=== PATIENT | female | born 1945 | race Caucasian/White ===

== ENCOUNTER 2017-06-24 20:17 | Inpatient (IN) | payer MEDICARE, OTHER ==
[~2017-06-24] VITALS: Ht 160 cm; Wt 61.8 kg
[2017-06-24] MEDS ORDERED: ZESTRIL40 MG PO (22:18)
[2017-06-24] MEDS ORDERED: PEPCID40 MG PO (22:24)
[2017-06-24] MEDS ORDERED: XANAX0.5 MG PO (22:24)
[2017-06-24] MEDS ORDERED: ZANAFLEX4 MG PO (22:25)
[2017-06-24] MEDS ORDERED: OMEPRAZOLE40 MG PO (22:26)
[2017-06-24] MEDS ORDERED: AMBIEN10 MG PO (22:27)
[2017-06-24] MEDS ORDERED: K-DUR20 MEQ PO (22:27)
[2017-06-24] MEDS ORDERED: ALDACTONE25 MG PO (22:29)
[2017-06-24] MEDS ORDERED: PRINIVIL10 MG PO (22:30)
[2017-06-24] MEDS ORDERED: BUTALB-APAP-CA1 EACH PO (22:31)
[2017-06-24] MEDS ORDERED: LEXAPRO20 MG PO (22:32)
[2017-06-24] MEDS ORDERED: CARAFATE1 G PO (22:33)
[2017-06-24 22:59] VITALS: BP 168/84; BMI 24.8
[2017-06-25] VITALS: BP 168/84
[2017-06-25 06:20] VITALS: BP 146/77
[2017-06-25 08:12] VITALS: BP 144/63
[2017-06-25 10:04] LABS: BASOPHILS 0.5 % (0-2); EOSINOPHILS 1.5 % (0-7); HEMATOCRIT 27.9 % (36.0-48.0); HEMOGLOBIN 9.3 g/dL (12-16); IMMATURE GRANULOCYTES 0.2 % (0-5); LYMPHOCYTES 20.5 % (15-50); MCH 33.9 pg (26.0-34.0); MCHC 33.3 g/dL (31.0-37.0); MCV 101.8 fL (80.0-100.0); MEAN PLATELET VOLUME 8.6 fL (7.4-10.4); MONOCYTES 7.3 % (2-11); PLATELET COUNT 388 10x3/uL (130-400); RBC 2.74 10x6/uL (4.00-5.40); RDW 13.4 % (11.5-14.5); WBC 8.5 10x3/uL (4.8-10.8)
[2017-06-25 10:29] LABS: ALBUMIN 1.1 g/dL (3.4-5.0); ANION GAP 15.9 mmol/L (8-16); BILIRUBIN - TOTAL 0.11 mg/dL (0.2-1.3); CALCIUM 8.1 mg/dL (8.5-10.1); CARBON DIOXIDE 16.4 mmol/L (21.0-32.0); CREATININE - SERUM 1.8 mg/dL (0.6-1.3); POTASSIUM - SERUM 4.3 mmol/L (3.5-5.1); PROTEIN - SERUM 4.7 g/dL (6.4-8.2)
[2017-06-25 11:30] VITALS: BP 140/60
[2017-06-25 15:40] VITALS: BP 136/68
[2017-06-25 21:52] VITALS: BP 163/82
[2017-06-26 00:52] VITALS: BP 158/74
[2017-06-26 07:25] VITALS: BP 166/75
[2017-06-26 07:43] LABS: BASOPHILS 0.7 % (0-2); EOSINOPHILS 2.2 % (0-7); HEMATOCRIT 28.8 % (36.0-48.0); HEMOGLOBIN 9.4 g/dL (12-16); IMMATURE GRANULOCYTES 0.2 % (0-5); MCH 33.3 pg (26.0-34.0); MCHC 32.6 g/dL (31.0-37.0); MCV 102.1 fL (80.0-100.0); MEAN PLATELET VOLUME 8.9 fL (7.4-10.4); MONOCYTES 6.9 % (2-11); RBC 2.82 10x6/uL (4.00-5.40); RDW 13.5 % (11.5-14.5); WBC 8.3 10x3/uL (4.8-10.8)
[2017-06-26 07:45] LABS: PLATELET COUNT 484 10x3/uL (130-400)
[2017-06-26 07:52] LABS: INR 1.05 (0.85-1.17); PROTIME 13.3 SECONDS (11.6-15.0)
[2017-06-26 08:01] LABS: ALBUMIN 1.2 g/dL (3.4-5.0); ANION GAP 15.2 mmol/L (8-16); CALCIUM 8.2 mg/dL (8.5-10.1); CARBON DIOXIDE 16.6 mmol/L (21.0-32.0); CREATININE - SERUM 1.7 mg/dL (0.6-1.3); POTASSIUM - SERUM 3.8 mmol/L (3.5-5.1); PROTEIN - SERUM 5.1 g/dL (6.4-8.2)
[2017-06-26 08:05] LABS: BILIRUBIN - TOTAL 0.09 mg/dL (0.2-1.3)
[2017-06-26 12:03] VITALS: BP 178/91
[2017-06-26 19:00] VITALS: BP 164/85
[2017-06-27] VITALS: BP 164/74
[2017-06-27 04:00] VITALS: BP 182/86
[2017-06-27 05:31] LABS: BASOPHILS 0.3 % (0-2); EOSINOPHILS 2.7 % (0-7); HEMATOCRIT 24.5 % (36.0-48.0); HEMOGLOBIN 7.9 g/dL (12-16); IMMATURE GRANULOCYTES 0.3 % (0-5); LYMPHOCYTES 23.7 % (15-50); MCH 32.8 pg (26.0-34.0); MCHC 32.2 g/dL (31.0-37.0); MCV 101.7 fL (80.0-100.0); MEAN PLATELET VOLUME 8.9 fL (7.4-10.4); MONOCYTES 7.2 % (2-11); NEUTROPHILS 65.8 % (40-80); PLATELET COUNT 416 10x3/uL (130-400); RBC 2.41 10x6/uL (4.00-5.40); RDW 13.6 % (11.5-14.5); WBC 7.4 10x3/uL (4.8-10.8)
[2017-06-27 05:53] LABS: ALBUMIN 1.1 g/dL (3.4-5.0); ANION GAP 15.7 mmol/L (8-16); CALCIUM 7.7 mg/dL (8.5-10.1); CARBON DIOXIDE 17.5 mmol/L (21.0-32.0); CREATININE - SERUM 1.8 mg/dL (0.6-1.3); POTASSIUM - SERUM 4.2 mmol/L (3.5-5.1); PROTEIN - SERUM 4.5 g/dL (6.4-8.2)
[2017-06-27 06:08] LABS: BILIRUBIN - TOTAL 0.05 mg/dL (0.2-1.3)
[2017-06-27 08:05] VITALS: BP 193/99
[2017-06-27 12:58] VITALS: BP 142/77
[2017-06-27 14:30] VITALS: Ht 160 cm; Wt 61.8 kg
[2017-06-27 17:23] VITALS: BP 184/92
[2017-06-27 19:00] VITALS: BP 217/101
[2017-06-27 22:18] LABS: HEMATOCRIT 29.1 % (36.0-48.0)
[2017-06-27 22:22] LABS: HEMOGLOBIN 9.8 g/dL (12-16)
[2017-06-28 04:00] VITALS: BP 132/75
[2017-06-28 05:39] LABS: BASOPHILS 0.4 % (0-2); EOSINOPHILS 0.9 % (0-7); HEMATOCRIT 26.5 % (36.0-48.0); IMMATURE GRANULOCYTES 0.7 % (0-5); LYMPHOCYTES 12.6 % (15-50); MEAN PLATELET VOLUME 8.8 fL (7.4-10.4); MONOCYTES 7.7 % (2-11); NEUTROPHILS 77.7 % (40-80); PLATELET COUNT 375 10x3/uL (130-400); RBC 2.73 10x6/uL (4.00-5.40); RDW 15.2 % (11.5-14.5)
[2017-06-28 05:55] LABS: MCV 97.1 fL (80.0-100.0)
[2017-06-28 06:13] LABS: ANION GAP 16.4 mmol/L (8-16); BILIRUBIN - TOTAL 0.12 mg/dL (0.2-1.3); CALCIUM 7.4 mg/dL (8.5-10.1); CARBON DIOXIDE 14.5 mmol/L (21.0-32.0); CREATININE - SERUM 1.7 mg/dL (0.6-1.3); POTASSIUM - SERUM 3.9 mmol/L (3.5-5.1); PROTEIN - SERUM 4.2 g/dL (6.4-8.2)
[2017-06-28 07:21] LABS: FOLATE (FOLIC ACID) - SERUM 8.3 ng/mL (>3.0)
[2017-06-28 09:03] VITALS: BP 168/89
[2017-06-28] MEDS ORDERED: BUMEX 1 MG TAB1 MG PO (09:30)
[2017-06-28] MEDS ORDERED: BYSTOLIC10 MG PO (09:32)
[2017-06-28] MEDS ORDERED: ZESTRIL40 MG PO (09:32)
[2017-06-28] MEDS ORDERED: METOLAZONE2.5 MG PO (09:33)
[2017-06-28] MEDS ORDERED: HCTZ25 MG PO (09:34)
[2017-06-28] MEDS ORDERED: FUROSEMIDE20 MG PO (09:34)
[2017-06-28] MEDS ORDERED: AMBIEN5 MG PO (09:35)
[2017-06-28 13:25] VITALS: BP 191/101
[2017-06-28 16:39] VITALS: BP 187/104
[2017-06-28 18:34] LABS: APPEARANCE HAZY (CLEAR); COLOR YELLOW (YELLOW); SPECIFIC GRAVITY 1.015 (1.005-1.020)
[2017-06-28 18:35] LABS: BILIRUBIN NEGATIVE (NEGATIVE); GLUCOSE NEGATIVE (NEGATIVE); KETONE NEGATIVE (NEGATIVE); NITRITE NEGATIVE (NEGATIVE); PROTEIN 2+ mg/dL (NEGATIVE); UROBILINOGEN NORMAL (NORMAL)
[2017-06-28 18:36] LABS: EPITHELIAL CELLS 0-5 /hpf (0-5); RED CELLS - URINE 0-5 /hpf (0-5)
[2017-06-28 18:37] LABS: BACTERIA FEW /hpf (NONE SEEN)
[2017-06-28 19:00] VITALS: BP 153/73
[2017-06-29 04:00] VITALS: BP 189/101
[2017-06-29 06:55] LABS: BASOPHILS 0.5 % (0-2); EOSINOPHILS 2.9 % (0-7); HEMATOCRIT 29.9 % (36.0-48.0); HEMOGLOBIN 10.3 g/dL (12-16); IMMATURE GRANULOCYTES 0.5 % (0-5); LYMPHOCYTES 20.8 % (15-50); MCH 33.3 pg (26.0-34.0); MCHC 34.4 g/dL (31.0-37.0); MCV 96.8 fL (80.0-100.0); MEAN PLATELET VOLUME 8.7 fL (7.4-10.4); MONOCYTES 6.6 % (2-11); NEUTROPHILS 68.7 % (40-80); RBC 3.09 10x6/uL (4.00-5.40); RDW 15.4 % (11.5-14.5); WBC 7.9 10x3/uL (4.8-10.8)
[2017-06-29 06:58] LABS: PLATELET COUNT 473 10x3/uL (130-400)
[2017-06-29 07:21] LABS: ALBUMIN 1.2 g/dL (3.4-5.0); ANION GAP 17.2 mmol/L (8-16); BILIRUBIN - TOTAL 0.07 mg/dL (0.2-1.3); CALCIUM 7.7 mg/dL (8.5-10.1); CARBON DIOXIDE 16.5 mmol/L (21.0-32.0); CREATININE - SERUM 1.7 mg/dL (0.6-1.3); POTASSIUM - SERUM 3.7 mmol/L (3.5-5.1); PROTEIN - SERUM 4.9 g/dL (6.4-8.2)
[2017-06-29 08:33] VITALS: BP 192/98
[2017-06-29] MEDS ORDERED: BUMEX2 MG PO (12:54)
[2017-07-01 14:12] LABS: SPE - A/G RATIO 0.6 (0.7-1.7); SPE - ALBUMIN 1.5 g/dL (2.9-4.4); SPE - ALPHA-1 GLOBULIN 0.2 g/dL (0.0-0.4); SPE - ALPHA-2 GLOBULIN 1.2 g/dL (0.4-1.0); SPE - BETA GLOBULIN 0.8 g/dL (0.7-1.3); SPE - GAMMA GLOBULIN 0.3 g/dL (0.4-1.8); SPE - M-SPIKE Not Observed g/dL (Not Observed)
[2017-07-03 15:15] LABS: HGB - A 97.8 % (96.4-98.8); HGB - A2 2.2 % (1.8-3.2); HGB - INTERPRETATION Note: (()); HGB - SOLUBILITY Negative (Negative)
== END 2017-06-29 16:06 | disposition home or self-care (01) | DRG 378 ==
LOC: D.M2 20:17
PROVIDERS: Family Medicine; Internal Medicine Gastroenterology; Internal Medicine Nephrology
PROC: 0DB78ZX Excision of Stomach, Pylorus, Via Natural or Artificial Opening Endoscopic, Diagnostic (ICD-10-PCS; 2017-06-26)
PROC: 0DB58ZX Excision of Esophagus, Via Natural or Artificial Opening Endoscopic, Diagnostic (ICD-10-PCS; 2017-06-26)
PROC: 0DB98ZX Excision of Duodenum, Via Natural or Artificial Opening Endoscopic, Diagnostic (ICD-10-PCS; principal; 2017-06-26 09:10)
DX: K55.21 Angiodysplasia of colon with hemorrhage (principal); N17.9 Acute kidney failure, unspecified; D62 Acute posthemorrhagic anemia; K29.01 Acute gastritis with bleeding; K44.9 Diaphragmatic hernia without obstruction or gangrene; K22.70 Barrett's esophagus without dysplasia; K20.9 Esophagitis, unspecified; K29.80 Duodenitis without bleeding; E88.09 Other disorders of plasma-protein metabolism, not elsewhere classified; K21.9 Gastro-esophageal reflux disease without esophagitis; E78.5 Hyperlipidemia, unspecified; I10 Essential (primary) hypertension; K58.9 Irritable bowel syndrome, unspecified